=== PATIENT | male | born 1940 | race Hispanic/Latino ===

== ENCOUNTER 2021-09-20 16:22 | Inpatient (IN) | payer OTHER ==
--- OUTSIDE RECORDS SUMMARY | 2021-09-20 16:26 | XMS REPORT | Continuity of Care Document ---
:[address] [facility] t Address [address] [place] [address] Dr. Krishnamurthy [address] [place] [id number] Care Team Providers Name Role Phone Drake Juarez Attending Clinician Unavailable Ajibade_O_AH Attending Clinician Unavailable Ige-Odunuga_J_AH Attending Clinician Unavailable OTHMAN Attending Clinician Unavailable Ajibade_O_AH Admitting Clinician Unavailable Ige-Odunuga_J_AH Admitting Clinician Unavailable OTHMAN Admitting Clinician Unavailable Payers Payer Name Policy Type Policy Number Effective Date Expiration Date [facility] [place] [facility] [id number] [facility] (MEDICARE REPLACEMENT/ADVANT AGE - HMO) Problems This patient has no known problems. Allergies, Adverse Reactions, Alerts This patient has no known allergies or adverse reactions. Medications This patient has no known medications. Procedures This patient has no known procedures. Encounters Start End Encounter Admission Attending Care Care Encounter Source Date/Time Date/Time Type Type Clinicians Facility Department ID 2021-09-11 Outpatient Anabel Juarez [facility] [id number] 12:57:02 [id number] [facility] ent Clinics 2020-01-25 2020-01-25 Outpatient Ajibade_O_A VFP VFP [phone] [facility] 04:40:00 04:40:00 H [id number] Family Practic e 2020-01-25 2020-01-25 Outpatient Ajibade_O_A VFP VFP [phone] [facility] 04:40:00 04:40:00 H [id number] Family Practic e 2020-01-25 2020-01-25 Outpatient Ajibade_O_A VFP VFP [phone] [facility] 04:40:00 04:40:00 H [id number] Family Practic e 2020-01-25 2020-01-25 Outpatient Ajibade_O_A VFP VFP [phone] [facility] 04:40:00 04:40:00 H [id number] Family Practic e 2020-01-25 2020-01-25 Outpatient Ajibade_O_A VFP VFP [phone] [facility] 04:40:00 04:40:00 H [id number] Family Practic e 2019-07-19 2019-07-19 Outpatient Ige-Radha VFP P [address] [place] [address] 07:24:00 07:24:00 _J_ [id number] Family Practic e Results Test Description Test Time Test Comments Results Result Comments Source TISSUE EXAM 2017-02-19 Surgical Pathology 10:26:00 Report Case: [id number] Authorizing Provider: Allyssa Barker MD Collected: 02/18/2017 1018 Ordering Location: [facility] Endoscopy Received: 02/18/2017 1404 Services Pathologist: Abdirahman Schultz MD Specimen: Polyp, Colon - Right/Ascending RIGHT/ASCENDING COLON POLYP, BIOPSY- 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 DB/ew Sections reveal fragments of tubular adenoma with focal superficial high grade dysplasia. The glands show proliferation of adenomatous epithelium with nuclear stratification. The lamina propria has mildly increased acute chronic inflammation. Tatoo pigmentation is seen in areas. No dysplasia is seen at cauterized resection margin. Invasive malignancy is not seen. POCT-GLUCOSE METER 2017-02-19 08:09:00 Test Item Value Reference Range Interpretation Comme nts POC-GLUCOSE METER (BEAKER) (test 173 mg/dL 70-110 H TESTED AT [facility] [address] code = 1538) [facility] 7703 0 BASIC METABOLIC [id number] 05:45:00 Test Item Value Reference Range Interpretation Comments SODIUM (BEAKER) 136 meq/L 136-145 (test code = 381) POTASSIUM (BEAKER) 3.8 meq/L 3.5-5.1 (test code = 379) CHLORIDE (BEAKER) 104 meq/L 98-107 (test code = 382) CO2 (BEAKER) (test 25 meq/L 22-29 code = 355) BLOOD UREA NITROGEN 22 mg/dL 7-21 H (BEAKER) (test code = 354) CREATININE (BEAKER) 1.01 mg/dL 0.57-1.25 (test code = 358) GLUCOSE RANDOM 159 mg/dL 70-105 H (BEAKER) (test code = 652) CALCIUM (BEAKER) 8.7 mg/dL 8.4-10.2 (test code = 697) EGFR (BEAKER) (test 71 mL/min/1.73 ESTIMA JOCELYN GFR IS code = 1092) sq m NOT ACCURATE CREATININE CLEARANCE IN PREDICTING GLOMERULAR FILTRATION RATE . ESTIMATED GFR I S NOT APPLICABLE FOR DIALYSIS PATIEN TS. CBC (HEMOGRAM ONLY)2017-02-19 05:24:00 Test Item Value Reference Range Interpretation Comments WHITE BLOOD CELL COUNT (BEAKER) 13.0 K/ L 3.5-10.5 H (test code = 775) RED BLOOD CELL COUNT (BEAKER) 4.79 M/ L 4.63-6.08 (test code = 761) HEMOGLOBIN (BEAKER) (test code = 14.5 GM/DL 13.7-17.5 410) HEMATOCRIT (BEAKER) (test code = 42.8 % 40.1-51.0 411) MEAN CORPUSCULAR VOLUME (BEAKER) 89.4 fL 79.0-92.2 (test code = 753) MEAN CORPUSCULAR HEMOGLOBIN 30.3 pg 25.7-32.2 (BEAKER) (test code = 751) MEAN CORPUSCULAR HEMOGLOBIN CONC 33.9 GM/DL 32.3-36.5 (BEAKER) (test code = 752) RED CELL DISTRIBUTION WIDTH 12.3 % 11.6-14.4 (BEAKER) (test code = 412) PLATELET COUNT (BEAKER) (test 149 K/CU MM 150-450 L code = 756) MEAN PLATELET VOLUME (BEAKER) 11.7 fL 9.4-12.4 (test code = 754) NUCLEATED RED BLOOD CELLS 0 /100 WBC 0-0 ([facility]) (test code = 413) POCT-GLUCOSE [id number] 21:23:00 Test Item Value Reference Range Interpretation Comments POC-GLUCOSE METER 205 mg/dL 70-110 H TESTED AT [place] [address] ([facility]) (test code = [address] [place] 1538) [id number] POCT-GLUCOSE [id number] 16:17:00 Test Item Value Reference Range Interpretation Comments POC-GLUCOSE METER 209 mg/dL 70-110 H TESTED AT [place] [address] ([facility]) (test code = ED[address] [place] 1538) [id number] POCT-GLUCOSE [id number] 15:29:00 Test Item Value Reference Range Interpretation Comments POC-GLUCOSE METER 147 mg/dL 70-110 H TESTED AT [place] [address] ([facility]) (test code = [address] [place] 1538) [id number] POCT-GLUCOSE [id number] 10:51:00 Test Item Value Reference Range Interpretation Comments POC-GLUCOSE METER 137 mg/dL 70-110 H TESTED AT [place] [address] ([facility]) (test code = ED[address] [place] 1538) [id number] POCT-GLUCOSE [id number] 07:02:00 Test Item Value Reference Range Interpretation Comments POC-GLUCOSE METER 171 mg/dL 70-110 H TESTED AT [place] [address] ([facility]) (test code = [address] [place] 1538) [id number]
[2021-09-20] MEDS ORDERED: NA CHLORIDE 0.9% 500 ML ONE ×2 (17:53→19:17)
[2021-09-20 18:11] LABS: Absolute Lymphocytes (CBC) 1.5 K/uL (0.7-4.9); Hematocrit 50.3 % (39.6-49.0); Lymphocytes % 14.3 % (15.3-44.8); MPV 10.4 fL (7.6-11.3); RBC Red Blood Cell Count 5.47 M/uL (4.33-5.43)
[2021-09-20 18:13] LABS: Protime INR 0.9
--- NOTE | 2021-09-20 18:14 | RAD REPORT ---
EXAM DESCRIPTION: RAD - Chest Single View - 09/20/2021 5:58 pm CLINICAL HISTORY: Dizziness Chest pain. COMPARISON: CHEST PA AND LAT 2 VIEW dated 07/04/2012; CHEST PA AND LAT 2 VIEW dated 06/12/2011; CHEST P A AND LAT 2 VIEW dated 07/27/2003 FINDINGS: Portable technique limits examination quality. The lungs are grossly clear. The heart is normal in size. No displaced fractures. IMPRESSION: No acute intrathoracic process suspected.
--- NOTE | 2021-09-20 18:16 | RAD REPORT ---
EXAM DESCRIPTION: CT - Head Brain Wo Cont - 09/20/2021 6:09 pm CLINICAL HISTORY: Dizziness, non-specific Headache, drowsiness, dizziness COMPARISON: No comparisons TECHNIQUE: All CT scans are performed using dose optimization technique as appropriate and may inclu de automated exposure control or mA/KV adjustment according to patient size. FINDINGS: No intracranial hemorrhage, hydrocephalus or extra-axial fluid collection.Mild brain atrop hy.No areas of brain edema or evidence of midline shift. Chronic sinusitis left maxillary antrum. The paranasal sinuses and mastoids are otherwise clear. The calvarium is intact. IMPRESSION: No acute intracranial abnormality.
[2021-09-20 18:29] LABS: Albumin 3.5 g/dL (3.4-5.0); Bilirubin Direct 0.2 mg/dL (0-0.2); Bilirubin Total 0.7 mg/dL (0.2-1.0); Magnesium 2.9 mg/dL (1.8-2.4); Potassium 5.2 mmol/L (3.5-5.1); Protein, Total 8.3 g/dL (6.4-8.2); Troponin High Sensitivity 9.1 pg/mL (<58.9)
--- NOTE | 2021-09-20 18:58 | ER ---
Nurse's Notes [facility] Name: Neal Farrell Age: 81 yrs Sex: Male : 1940 Arrival Date: 09/20/2021 Time: 16:23 Bed 16 Private MD: Diagnosis: Dehydration;Hyperglycemia, unspecified Presentation: 09/20 17:01 Chief complaint: Patient's son or daughter states: "my dad has been feeling dizzy since vg1 yesterday but today I noticed that he lost his balance and caught himself against the wall and I helped him sit down" Pt states "when Im sitting down Im ok but when I stand up I feel dizzy" Stated room spins upon standing. Denies NV or headache. Coronavirus screen: Vaccine status: Patient reports receiving the 2nd dose of the covid vaccine. Client denies travel out of the [place] in the last 14 days. Ebola Screen: Patient denies exposure to infectious person. Patient denies travel to an Ebola-affected area in the 21 days before illness onset. Initial Sepsis Screen: Does the patient meet any 2 criteria? No. Patient's initial sepsis screen is negative. Does the patient have a suspected source of infection? No. Patient's initial sepsis screen is negative. Risk Assessment: Do you want to hurt yourself or someone else? Patient reports no desire to harm self or others. Onset of symptoms was September 19, 2021. 17:01 Method Of Arrival: Wheelchair vg1 17:01 Acuity: VIBHA 2 vg1 Triage Assessment: 17:06 General: Appears uncomfortable, Behavior is cooperative. Pain: Denies pain. vg1 Historical: - Allergies: 17:06 No Known Allergies; vg1 - Home Meds: 17:06 amlodipine oral [Active]; Hydrochlorothiazide Oral [Active]; pravastatin oral [Active]; vg1 Lisinopril Oral [Active]; Novolog Sub-Q [Active]; Tresiba FlexTouch U-200 200 unit/mL (3 mL) subcutaneous inpn [Active]; - PMHx: 17:06 Diabetes mellitus; Hypertensive disorder; Hypercholesterolemia; vg1 - Immunization history:: Client reports receiving the 2nd dose of the Covid vaccine. - Social history:: Smoking status: Patient denies any tobacco usage or history of. Screenin:12 Abuse screen: Denies threats or abuse. Denies injuries from another. Nutritional ph screening: No deficits noted. Tuberculosis screening: No symptoms or risk factors identified. Fall Risk No fall in past 12 months (0 pts). No secondary diagnosis (0 pts). IV access (20 points). Ambulatory Aid- None/Bed Rest/Nurse Assist (0 pts). Gait- Weak (10 pts.). Mental Status- Oriented to own ability (0 pts). Total Weber Fall Scale indicates Low Risk Score (25-44 pts). Fall prevention measures have been instituted. Side Rails Up X 2 Placed close to Nursing Station Frequent Obs/Assesments occuring Family Present and informed to notify staff if they need to leave bedside As available Patient and Family Educated on Fall Prevention Program and strategies. Assessment: 17:40 General: Appears in no apparent distress. comfortable, well groomed, Behavior is calm, ph cooperative, appropriate for age, Denies fever, chills. Pain: Denies pain. Neuro: Level of Consciousness is awake, alert, obeys commands, Oriented to person, place, time, situation, Reports dizziness. Cardiovascular: Reports fatigue, lightheadedness, Denies chest pain, nausea, shortness of breath, vomiting, Capillary refill < 3 seconds in bilateral fingers Patient's skin is warm and dry. Respiratory: Airway is patent Respiratory effort is even, unlabored. GI: No signs and/or symptoms were reported involving the gastrointestinal system. Patient currently denies diarrhea, nausea, vomiting, Parent/caregiver reports the patient having constipation. : No signs and/or symptoms were reported regarding the genitourinary system. Derm: Skin is intact, Skin is pink, warm \\T\\ dry. Musculoskeletal: Circulation, motion, and sensation intact. Range of motion: intact in all extremities. 19:26 Reassessment: Patient and/or family updated on plan of care and expected duration. Pain ph level reassessed. Patient is alert, oriented x 3, equal unlabored respirations, skin warm/dry/pink. Patient denies pain at this time. Vital Signs: 17:01 BP 79 / 45; Pulse 78; Resp 16; Temp 97.5; Pulse Ox 99% on R/A; Weight 86.18 kg; Height vg1 5 ft. 9 in. (175.26 cm); Pain 0/10; 17:40 BP 92 / 40; Pulse 74; Resp 18; Pulse Ox 96% on R/A; ph 18:18 BP 117 / 64; Pulse 70; Resp 18; Pulse Ox 99% on R/A; ph 19:00 BP 129 / 64; Pulse 82; Resp 22; Pulse Ox 98% on R/A; ph 20:30 BP 109 / 63; Pulse 81; Resp 22; Pulse Ox 96% on R/A; ph 17:01 Body Mass Index 28.06 (86.18 kg, 175.26 cm) vg1 ED Course: 16:23 Patient arrived in ED. ds1 17:04 Triage completed. vg1 17:06 Arm band placed on. vg1 17:11 Wendy Moss RN is Primary Nurse. ph 17:13 Patient has correct armband on for positive identification. Bed in low position. Call ph light in reach. Side rails up X 1. athletic monitor on. Pulse ox on. NIBP on. 17:27 Venkat Darby NP is PHCP. pm1 17:27 Naomi Estevez MD is Attending Physician. pm1 17:40 Missed attempt(s): 20 gauge in left antecubital area. Bleeding controlled, band aid ph applied, catheter tip intact. Missed attempt(s): 22 gauge in left forearm. 17:59 Inserted saline lock: 20 gauge in right antecubital area, using aseptic technique. mb7 Blood collected. 18:00 XRAY Chest (1 view) In Process Unspecified. EDMS 18:10 Head Brain Wo Cont In Process Unspecified. EDMS 18:57 Naomi Graham MD is Hospitalizing Provider. pm1 19:26 No provider procedures requiring assistance completed. Patient admitted, IV remains in ph place. 19:29 Primary Nurse role handed off by Wendy Moss RN mw2 20:54 Wendy Moss RN is Primary Nurse. ph Administered Medications: 18:18 Drug: NS 0.9% 500 ml Route: IV; Rate: bolus; Site: right antecubital; ph 19:24 Drug: Insulin Regular Human 10 units {Co-Signature: ll3 (Marla Oliver RN).} Route: ph IVP; Site: right antecubital; 19:25 Drug: NS 0.9% 500 ml Route: IV; Rate: bolus; Site: right antecubital; ph 20:40 Drug: NS 0.9% 1000 ml Route: IV; Rate: 100 ml/hr; Site: right antecubital; ph Outcome: 18:57 Decision to Hospitalize by Provider. pm1 21:44 Admitted to Med/surg accompanied by nurse, via stretcher, room 225, with chart, Report vc1 called to KITA Pugh 21:44 Condition: good 21:46 Patient left the ED. vc1 Signatures: Dispatcher [facility] Yadira Moffett ds1 Wendy Moss, RN RN ph Venkat Darby, CHEY INSIDE SALES REPRESENTATIVE pm1 Mayo Stockton mw2 Kareen Nieto RN RN vg1 Quiana Teresa mb7 Shelly St RN RN vc1 Marla Oliver RN ll3 Corrections: (The following items were deleted from the chart) 21:45 21:44 Admitted to Med/surg accompanied by nurse, via stretcher, with chart, Report vc1 called to KITA Pugh vc1
--- NOTE | 2021-09-20 18:58 | EDPHYS ---
Physician Documentation [facility] Name: Neal Farrell Age: 81 yrs Sex: Male : 1940 Arrival Date: 09/20/2021 Time: 16:23 Bed 16 Private MD: ED Physician Naomi Estevez HPI: 09/20 17:30 This 81 yrs old Male presents to ER via Wheelchair with complaints of pm1 Dizziness. 17:30 The patient presents with dizziness, sense of spinning. Onset: The symptoms/episode pm1 began/occurred yesterday. Context: occurred while the patient was changing position. Sitting to standing causes dizziness. just prior to the episode the patient experienced no apparent symptoms. Modifying factors: The symptoms are alleviated by lying down, or sitting down, the symptoms are aggravated by changing position. Associated signs and symptoms: Pertinent positives: generalized weakness, Pertinent negatives: chest pain, palpitations, shortness of breath. Severity of symptoms: in the emergency department the symptoms are worse Pain is currently a 0 / 10. Patient's baseline: Neuro: alert and fully oriented, Motor: no deficits, Speech: normal. The patient has not recently seen a physician, has an appointment scheduled, Dr. Juarez . Historical: - Allergies: 17:06 No Known Allergies; vg1 - Home Meds: 17:06 amlodipine oral [Active]; Hydrochlorothiazide Oral [Active]; pravastatin oral [Active]; vg1 Lisinopril Oral [Active]; Novolog Sub-Q [Active]; Tresiba FlexTouch U-200 200 unit/mL (3 mL) subcutaneous inpn [Active]; - PMHx: 17:06 Diabetes mellitus; Hypertensive disorder; Hypercholesterolemia; vg1 - Immunization history:: Client reports receiving the 2nd dose of the Covid vaccine. - Social history:: Smoking status: Patient denies any tobacco usage or history of. ROS: 17:30 Constitutional: Negative for fever, chills, and weight loss, Cardiovascular: Negative pm1 for chest pain, palpitations, and edema, Respiratory: Negative for shortness of breath, cough, wheezing, and pleuritic chest pain, Abdomen/GI: Negative for abdominal pain, nausea, vomiting, diarrhea, and constipation, Back: Negative for injury and pain, MS/Extremity: Negative for injury and deformity, Skin: Negative for injury, rash, and discoloration. 17:30 Neuro: Positive for dizziness. 17:30 All other systems are negative. Exam: 17:30 Constitutional: This is a well developed, well nourished patient who is awake, alert, pm1 and in no acute distress. Head/Face: Normocephalic, atraumatic. 17:30 Back: No spinal tenderness. No costovertebral tenderness. Full range of motion. Skin: Warm, dry with normal turgor. Normal color with no rashes, no lesions, and no evidence of cellulitis. MS/ Extremity: Pulses equal, no cyanosis. Neurovascular intact. Full, normal range of motion. 17:30 Chest/axilla: Exam negative for acute changes, Inspection: normal, Palpation: is normal. 17:30 Cardiovascular: Exam negative for acute changes, Rate: normal, Rhythm: regular, Pulses: no pulse deficits are appreciated, Heart sounds: normal, normal S1and S2. 17:30 Respiratory: Exam negative for acute changes, respiratory distress, shortness of breath, Breath sounds: are clear throughout. 17:30 Neuro: Exam negative for acute changes, Orientation: is normal, Mentation: is normal, Motor: is normal, moves all fours. Vital Signs: 17:01 BP 79 / 45; Pulse 78; Resp 16; Temp 97.5; Pulse Ox 99% on R/A; Weight 86.18 kg; Height vg1 5 ft. 9 in. (175.26 cm); Pain 0/10; 17:40 BP 92 / 40; Pulse 74; Resp 18; Pulse Ox 96% on R/A; ph 18:18 BP 117 / 64; Pulse 70; Resp 18; Pulse Ox 99% on R/A; ph 19:00 BP 129 / 64; Pulse 82; Resp 22; Pulse Ox 98% on R/A; ph 20:30 BP 109 / 63; Pulse 81; Resp 22; Pulse Ox 96% on R/A; ph 17:01 Body Mass Index 28.06 (86.18 kg, 175.26 cm) vg1 MDM: 17:31 Patient medically screened. pm1 18:56 Data reviewed: vital signs. Data interpreted: Pulse oximetry: on room air is 99 %. pm1 Interpretation:. Counseling: I had a detailed discussion with the patient and/or guardian regarding: the historical points, exam findings, and any diagnostic results supporting the discharge/admit diagnosis, lab results, radiology results, the need for further work-up and treatment in the hospital, to return to the emergency department if symptoms worsen or persist or if there are any questions or concerns that arise at home. 18:58 ED course: Discussed presentation and labs with Dr. Canada. Impression is dehydration pm1 and hyperglycemia, not DKA. Treatment is IV fluids and insulin IV. No insulin drip. Calculated anion gap 11. CO2 wnls. Corrected Na is 134 . 09/20 17:30 Order name: Basic Metabolic Panel; Complete Time: 18:47 pm1 09/20 17:30 Order name: CBC with Diff; Complete Time: 18:21 pm1 09/20 17:30 Order name: LFT's; Complete Time: 18:47 pm1 09/20 17:30 Order name: Magnesium; Complete Time: 18:47 pm1 09/20 17:30 Order name: NT PRO-BNP; Complete Time: 18:47 pm1 09/20 17:30 Order name: PT-INR; Complete Time: 18:21 pm09/20 17:30 Order name: Troponin HS; Complete Time: 18:47 pm1 09/20 17:30 Order name: XRAY Chest (1 view); Complete Time: 18:21 pm1 09/20 17:30 Order name: CT Head Brain wo Cont pm1 09/20 17:42 Order name: Head Brain Wo Cont; Complete Time: 18:21 EDMS 09/20 19:09 Order name: COVID-19 SARS RT PCR (Document "Date of Onset" if Symptomatic); Complete ph Time: 20:10 09/20 21:05 Order name: Glucose, Ancillary Testing; Complete Time: 08:11 EDMS 09/20 17:30 Order name: EKG; Complete Time: 17:37 pm09/20 17:30 Order name: Cardiac monitoring; Complete Time: 17:40 pm09/20 17:30 Order name: EKG - Nurse/Tech; Complete Time: 17:39 pm09/20 17:30 Order name: IV Saline Lock; Complete Time: 18:18 pm09/20 17:30 Order name: Labs collected and sent; Complete Time: 18:18 pm09/20 17:30 Order name: O2 Per Protocol; Complete Time: 17:40 pm1 09/20 17:30 Order name: O2 Sat Monitoring; Complete Time: 17:39 pm1 Administered Medications: 18:18 Drug: NS 0.9% 500 ml Route: IV; Rate: bolus; Site: right antecubital; ph 19:24 Drug: Insulin Regular Human 10 units {Co-Signature: ll3 (Marla Oliver RN).} Route: ph IVP; Site: right antecubital; 19:25 Drug: NS 0.9% 500 ml Route: IV; Rate: bolus; Site: right antecubital; ph 20:40 Drug: NS 0.9% 1000 ml Route: IV; Rate: 100 ml/hr; Site: right antecubital; ph Disposition Summary: 09/20/21 18:57 Hospitalization Ordered Hospitalization Status: Inpatient Admission pm1 Provider: Naomi Graham pm1 Location: Telemetry/MedSurg (Inpatient) pm1 Condition: Stable pm1 Problem: new pm1 Symptoms: have improved pm1 Bed/Room Type: Standard pm1 Room Assignment: 225(09/20/21 20:23) Diagnosis - Dehydration pm1 - Hyperglycemia, unspecified pm1 Forms: - Medication Reconciliation Form pm1 - SBAR form pm1 Addendum: 09/25/2021 18:07 Co-signature as Attending Physician, Naomi sarkar a2 Signatures: Dispatcher [employer] EDMS Lou Carter RN RN mw Hall, Patricia, RN RN Venkat Darby, CHEY EARLY HEAD START DIRECTOR pm1 Naomi Estevez MD MD tn2 Kareen Nieto RN RN 1 Marla Oliver RN ll3 Corrections: (The following items were deleted from the chart) 09/20 19:57 18:57 Hypo-osmolality and hyponatremia pm1 pm1 20: 18:57 pm1 mw
[2021-09-20] MEDS ORDERED: INSULIN -REGULAR HUMAN 50 UNIT/0.5 ML ML ONE (19:17)
[2021-09-20] MEDS ORDERED: NA CHLORIDE 0.9% 1,000 ML ONE (19:17)
[2021-09-20] MEDS ORDERED: ONDANSETRON 4 MG/2 ML VIAL IV PRN (21:36)
[2021-09-20] MEDS ORDERED: GLUCAGON 1 MG/VIAL IM PRN (21:36)
[2021-09-20] MEDS ORDERED: INSULIN -REGULAR HUMAN 50 UNIT/0.5 ML ML SQ SCH (21:36)
[2021-09-20] MEDS ORDERED: NA CHLORIDE 0.9% 1,000 ML IV SCH (21:36)
[2021-09-20] MEDS ORDERED: INSULIN -REGULAR HUMAN 50 UNIT/0.5 ML ML IV ONE (21:36)
[2021-09-20] MEDS ORDERED: ACETAMINOPHEN 500 MG TAB PO PRN (21:36)
[2021-09-20] MEDS ORDERED: D50W 25 GM/50 ML SYRINGE IV PRN (21:36)
--- NOTE | 2021-09-20 22:20 | P.HP ---
Certification for Inpatient Patient admitted to: Inpatient With expected LOS: >2 Midnights Patient will require the following post-hospital care: None Practitioner: I am a practitioner with admitting privileges, knowledge of patient current condition, hospital course, and medical plan of care. Services: Services provided to patient in accordance with Admission requirements found in Title 42 Section 412.3 of the Code of Federal Regulations <Gricelda Adkins - Last Filed: 09/20/21 22:27> Patient History Date of Service: 09/20/21 Reason for admission: Dehydration, Hyperglycemia, Hyponatremia History of Present Illness: Patient is an 81-year-old male with past medical history of type 2 diabetes insulin dependent and hypertension who presented to the ED with complaints of weakness. Patient's son states that he almost fell down from the dizziness today. Patient reports that he has been eating less the past couple of days but drinking a lot of water. Labs significant for 128 of 116, potassium 5.2, chloride 81, glucose 863, magnesium 2.9, creatinine 2.34 (baseline unknown), GFR 27, corrected sodium 134. Patient was given 10 units of insulin and 1 L bolus. Subsequent glucose readings still greater than 500. Electrolyte balance is likely secondary to dehydration and hyperglycemia. Upon my assessment, patient is oriented x3 and states he is feeling mild improvement. ED provider wishes to admit patient for further evaluation and treatment. Home medications list reviewed: Yes - Past Medical/Surgical History Diabetic: Yes -: Hypertension -: Type 2 Diabetes- Insulin Dependent -: Hyperlipidemia Past Surgical History: Patient denies surgical history Psychosocial/ Personal History: Patient lives at home with his son. - Family History Father -: Diabetes - Social History Smoking Status: Never smoker Alcohol use: Yes CD- Drugs: No Caffeine use: Yes Place of Residence: Home <JedGricelda - Last Filed: 09/20/21 22:27> Date of Service: 09/20/21 - Family History Father -: Diabetes Mother -: Diabetes Sister -: Diabetes <Naomi Graham - Last Filed: 09/21/21 21:42> Allergies No Known Allergies Allergy (Verified 09/21/21 02:29) Review of Systems 10-point ROS is otherwise unremarkable General: Other (dizziness) <Gricelda Adkins - Last Filed: 09/20/21 22:27> Physical Examination - Vital Signs Temperature: 97.5 F Blood Pressure: 109/63 Pulse: 81 Respirations: 22 - Physical Exam General: Alert, In no apparent distress, Oriented x3 HEENT: Atraumatic, PERRLA, EOMI, Sclerae nonicteric Neck: Supple, 2+ carotid pulse no bruit, No LAD, Without JVD or thyroid abnormality Respiratory: Clear to auscultation bilaterally, Normal air movement Cardiovascular: Regular rate/rhythm, Normal S1 S2 Gastrointestinal: Normal bowel sounds, No tenderness Musculoskeletal: No tenderness Integumentary: No rashes Neurological: Normal speech, Normal strength at 5/5 x4 extr, Normal tone, Normal affect - Studies Laboratory Data (last 24 hrs) 09/20/21 17:52: PT 9.9, INR 0.90 09/20/21 17:52: WBC 10.6, Hgb 16.9, Hct 50.3 H, Plt Count 180 09/20/21 17:52: Sodium 116 L*, Potassium 5.2 H, BUN 49 H, Creatinine 2.34 H, Glucose 863 H*, Magnesium 2.9 H, Total Bilirubin 0.7, AST 8 L, ALT 16, Alkaline Phosphatase 131 H <Roxy Adkinsia - Last Filed: 09/20/21 22:27> Assessment and Plan - Problems (Diagnosis) (1) Dehydration Current Visit: Yes Status: Acute (2) Acute hyponatremia Current Visit: Yes Status: Acute (3) Type 2 diabetes mellitus Current Visit: Yes Status: Chronic Qualifiers: Diabetes mellitus detention insulin use: with detention use Diabetes mellitus complication status: with hyperglycemia Qualified Code(s): E11.65 - Type 2 diabetes mellitus with hyperglycemia; Z79.4 - 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 Corrected sodium 134. Anion gap calculated by lab 16.2 but I calculated 11. DKA unlikely -10 units of insulin given the in the ED. Blood sugar remained greater than 500. We will continue IV insulin as needed -Recheck BMP in 4 hours. Electrolyte abnormalities likely secondary to dehydration/hypovolemia and hyperglycemia -Pending serum osmolality, urine osmolality, urine creatinine and sodium, uric acid, and nephrology consult -NS 0.9% at 100 cc an hour -Patient slightly hypotensive in the ED at 79 systolic. Has improved. Will monitor on telemetry -Creatinine elevated at 2.34. Unsure of patient's baseline. We will continue IV fluids and hold any nephrotoxic agents -Heparin for DVT prophylax Patient's son, Donal, can be reached at [phone] Discharge Plan: Home Plan to discharge in: 48 Hours - Advance Directives Does patient have a Living Will: No Does patient have a Durable POA for Healthcare: No - Code Status/Comfort Care Code Status Assessed: Yes (Full) Critical Care: No Time Spent Managing Pts Care (In Minutes): 70 <Gricelda Adkins - Last Filed: 09/20/21 22:27> Date of Service: 09/20/21 Subjective: HPI as mentioned above Physical Examination: Vitals: Afebrile vital signs are stable Physical exam: Cardiovascular: Within normal limits. Lungs: Within normal limits Abdomen: Within normal limits Neuro: Awake, alert, oriented to person place and time Assessment: 1. Hyponatremia and hyperglycemia Plan: 1. Continue with current plan of care as mentioned above <Naomi Graham - Last Filed: 09/21/21 21:42>
[2021-09-20 23:34] LABS: Potassium 4.2 mmol/L (3.5-5.1)
[2021-09-21] MEDS ORDERED: D50W 25 GM/50 ML SYRINGE IV PRN (00:35)
[2021-09-21] MEDS ORDERED: INSULIN -REGULAR HUMAN 50 UNIT/0.5 ML ML IV ONE (00:35)
[2021-09-21] MEDS ORDERED: GLUCAGON 1 MG/VIAL IM PRN (00:35)
[2021-09-21] MEDS: HEPARIN 5000 UNIT/ML 1 ML VIAL SQ SCH ×4 (02:09→23:59)
[2021-09-21 02:17] LABS: Arterial Blood Carboxyhemoglob 0.9 % (0-1.5); Blood Gas Oxyhemoglobin 93.3 % (94-97); Blood O2 Saturation 95.2 % (92-98.5)
[2021-09-21 02:51] VITALS: BMI 24.3
[2021-09-21 03:35] LABS: Absolute Lymphocytes (CBC) 2.7 K/uL (0.7-4.9); Hematocrit 42.2 % (39.6-49.0); Lymphocytes % 25.9 % (15.3-44.8); MPV 9.7 fL (7.6-11.3); RBC Red Blood Cell Count 4.77 M/uL (4.33-5.43)
[2021-09-21] MEDS: INSULIN -REGULAR HUMAN 50 UNIT/0.5 ML ML SQ SCH ×5 (03:39→20:49)
[2021-09-21 04:03] LABS: Albumin 2.8 g/dL (3.4-5.0); Bilirubin Total 0.5 mg/dL (0.2-1.0); Magnesium 2.6 mg/dL (1.8-2.4); Phosphorus 3.6 mg/dL (2.5-4.9); Potassium 3.4 mmol/L (3.5-5.1); Protein, Total 6.5 g/dL (6.4-8.2); Thyroid Stimulating Hormone 0.581 uIU/mL (0.360-3.740)
[2021-09-21] MEDS ORDERED: INSULIN -REGULAR HUMAN 50 UNIT/0.5 ML ML SQ SCH (06:00)
[2021-09-21 06:22] LABS: Urine Appearance Clear (Clear); Urine Bilirubin Negative (Negative); Urine Blood Trace-intact (Negative); Urine Color Yellow (Yellow); Urine Glucose 2+ (Negative); Urine Protein Negative (Negative); Urine Specific Gravity 1.015 (1.005-1.030); Urine Urobilinogen 0.2 mg/dL (0.2-1.0); Urine pH 5.5 (5.0-7.0)
[2021-09-21 06:23] LABS: Urine Microscopic Reflex ORDER UMIC
[2021-09-21 06:28] LABS: Urine Bacteria 20-50 /HPF (NONE SEEN); Urine Mucus 1+ /HPF (NONE SEEN); Urine RBC <5 /HPF (NONE SEEN); Urine Yeast FEW (NONE SEEN)
[2021-09-21] MEDS: NA CHLORIDE 0.9% 1,000 ML IV SCH ×3 (06:52→13:27)
[2021-09-21] MEDS ORDERED: CEFTRIAXONE 1,000 MG in NA CHLORIDE 0.9% 50 ML IVPB ONE (14:00)
[2021-09-21] MEDS: PHENOL 1.4% ORAL SPRAY 180ML MM PRN (14:01)
[2021-09-21] MEDS: CHLORASEPTIC LOZENGES PO PRN (14:01)
--- NOTE | 2021-09-21 21:47 | P.PN ---
Subjective Date of Service: 09/21/21 Subjective: No new changes, No C/O voiced, Improving Review of Systems 10-point ROS is otherwise unremarkable Physical Examination - Vital Signs Temperature: 96.7 F Blood Pressure: 102/55 Pulse: 68 Respirations: 16 Pulse Ox (%): 98 - Physical Exam General: Alert, In no apparent distress, Oriented x3 Respiratory: Clear to auscultation bilaterally, Normal air movement Cardiovascular: Regular rate/rhythm, Normal S1 S2, No murmurs Gastrointestinal: Normal bowel sounds, Soft and benign, Non-distended, No tenderness, No rebound, No guarding Musculoskeletal: No clubbing, No swelling, No tenderness Neurological: Sensation intact, Cranial nerves 3-12 intact - Studies Medications List Reviewed: Yes Assessment & Plan - Problems (Diagnosis) (1) Hyperglycemia Current Visit: Yes Status: Acute (2) TONE (acute kidney injury) Current Visit: Yes Status: Acute (3) Acute hyponatremia Current Visit: Yes Status: Acute (4) Dehydration Current Visit: Yes Status: Acute (5) Type 2 diabetes mellitus Current Visit: Yes Status: Chronic Qualifiers: Diabetes mellitus starch crab insulin use: with prison use Diabetes mellitus complication status: with hyperglycemia Qualified Code(s): E11.65 - Type 2 diabetes mellitus with hyperglycemia; Z79.4 - USP (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 of insulin - Plan Plan: 1. Strict blood sugar control 2. Continue with IV fluids 3. Monitor sodium level 4. Out of bed and ambulate 5. Possible discharge in the morning 6. GI and DVT prophylaxis Discharge Plan: Home Plan to discharge in: Greater than 2 days - Advance Directives Does patient have a Living Will: No Does patient have a Durable POA for Healthcare: No - Code Status/Comfort Care Code Status Assessed: Yes Code Status: Full Code Critical Care: No Time Spent Managing PTS Care (In Minutes): 35
[2021-09-22 04:11] LABS: Absolute Lymphocytes (CBC) 2.3 K/uL (0.7-4.9); Hematocrit 39.6 % (39.6-49.0); Lymphocytes % 29.1 % (15.3-44.8)
[2021-09-22 04:33] LABS: Albumin 2.5 g/dL (3.4-5.0); Bilirubin Total 0.3 mg/dL (0.2-1.0); Magnesium 2.5 mg/dL (1.8-2.4); Phosphorus 3.3 mg/dL (2.5-4.9); Potassium 3.4 mmol/L (3.5-5.1); Protein, Total 5.9 g/dL (6.4-8.2)
[2021-09-22] MEDS: INSULIN -REGULAR HUMAN 50 UNIT/0.5 ML ML SQ SCH ×4 (08:12→22:39)
[2021-09-22] MEDS: PHENOL 1.4% ORAL SPRAY 180ML MM PRN ×2 (08:12→20:20)
[2021-09-22] MEDS: CHLORASEPTIC LOZENGES PO PRN ×2 (08:13→20:25)
[2021-09-22] MEDS: NA CHLORIDE 0.9% 1,000 ML IV SCH (08:14)
[2021-09-22] MEDS: HEPARIN 5000 UNIT/ML 1 ML VIAL SQ SCH ×2 (08:14→17:00)
[2021-09-22] MEDS: CEFTRIAXONE 1,000 MG in NA CHLORIDE 0.9% 50 ML IVPB SCH (08:14)
--- NOTE | 2021-09-22 16:13 | P.PN ---
Subjective Date of Service: 09/22/21 Chief Complaint: Dehydration, Hyperglycemia, Hyponatremia Subjective: No new changes (Slowly improving Family still worried about persistent hypoglycemia Patient more conversant although slow) Physical Examination - Vital Signs Temperature: 97.0 F Blood Pressure: 121/60 Pulse: 75 Respirations: 16 Pulse Ox (%): 96 - Studies Medications List Reviewed: Yes Assessment And Plan Physician Review: Patient Assessed, Agree with Above Assessment and Plan Physician Review Additional Text: - Physical Exam General: Alert, In no apparent distress, Oriented x3 Respiratory: Clear to auscultation bilaterally, Normal air movement Cardiovascular: Regular rate/rhythm, Normal S1 S2, No murmurs Gastrointestinal: Normal bowel sounds, Soft and benign, Non-distended, No tenderness, No rebound, No guarding Musculoskeletal: No clubbing, No swelling, No tenderness Neurological: Sensation intact, Cranial nerves 3-12 intact - Studies Medications List Reviewed: Yes Assessment & Plan - Problems (Diagnosis) (1) Hyperglycemia Current Visit: Yes Status: Acute (2) TONE (acute kidney injury) Current Visit: Yes Status: Acute (3) Acute hyponatremia Current Visit: Yes Status: Acute (4) Dehydration Current Visit: Yes Status: Acute (5) Type 2 diabetes mellitus Current Visit: Yes Status: Chronic Qualifiers: Diabetes mellitus retirement insulin use: with retirement use Diabetes m edilmaitus complication status: with hyperglycemia Qualified Code(s): E11.65 - Type 2 diabetes mellitus with hyperglycemia; Z79.4 - 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 (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 of insulin - Plan Plan: See persistent hyperglycemiastart long-acting insulin Patient previously on Tresiba, switched to Levemir 30 units twice daily and monitor Patient to bring home dose of Tresiba and they can adjust Continuously and sliding scale Add low-dose metformin since Marked elevated HbA1c and minimize risk of hypoglycemia Serum sodium improving Replace potassium today Creatinine improving to 1.1 DC IVF normal saline since mild fluid overload, Blood pressure improved, continue to hold his CTZ/lisinopril/Norvasc Restart statin Start PT and OT Option of SNF versus home with PT discussed with family do prefer home with PT Case management to arrange possible discharge in a.m. 6. GI and DVT prophylaxis Discharge Plan: Home Plan to discharge in: Greater than 2 days
[2021-09-22] MEDS ORDERED: POTASSIUM 25 MEQ EFFERV TAB PO ONE (17:00)
[2021-09-22] MEDS: INSULIN GLARGINE 100 UNIT/ML SQ SCH (17:15)
[2021-09-22] MEDS: METFORMIN HCL 500 MG TAB PO SCH (17:15)
[2021-09-22] MEDS ORDERED: ATORVASTATIN 10 MG TAB PO SCH (21:00)
[2021-09-23] MEDS: HEPARIN 5000 UNIT/ML 1 ML VIAL SQ SCH ×2 (00:14→08:29)
[2021-09-23 04:11] LABS: Absolute Lymphocytes (CBC) 2.1 K/uL (0.7-4.9); Hematocrit 40.3 % (39.6-49.0); Lymphocytes % 24.3 % (15.3-44.8); MPV 9.8 fL (7.6-11.3); RBC Red Blood Cell Count 4.59 M/uL (4.33-5.43)
[2021-09-23 04:38] LABS: Albumin 2.6 g/dL (3.4-5.0); Bilirubin Total 0.3 mg/dL (0.2-1.0); Magnesium 2.4 mg/dL (1.8-2.4); Phosphorus 2.5 mg/dL (2.5-4.9); Potassium 3.4 mmol/L (3.5-5.1); Protein, Total 6.4 g/dL (6.4-8.2)
[2021-09-23] MEDS: INSULIN GLARGINE 100 UNIT/ML SQ SCH (04:50)
[2021-09-23] MEDS: INSULIN -REGULAR HUMAN 50 UNIT/0.5 ML ML SQ SCH ×2 (07:30→12:26)
[2021-09-23] MEDS: CEFTRIAXONE 1,000 MG in NA CHLORIDE 0.9% 50 ML IVPB SCH (08:29)
[2021-09-23] MEDS: METFORMIN HCL 500 MG TAB PO SCH (08:29)
[2021-09-23] MEDS: CHLORASEPTIC LOZENGES PO PRN (08:37)
[2021-09-23] MEDS ORDERED: HOME MED 1 EA UNK (Pravastatin Sodium [Pravastatin Sodium] 20 MG Tablet) PO SCH (09:00)
[2021-09-23] MEDS ORDERED: POTASSIUM 25 MEQ EFFERV TAB PO ONE (10:45)
--- NOTE | 2021-09-23 10:48 | P.DS ---
Admission Date: 09/20/21 Discharge Date: 09/23/21 Disposition: DC HOME/HOME HEALTH CARE Discharge Condition: FAIR Reason for Admission: Dehydration, Hyperglycemia, Hyponatremia Brief History of Present Illness: History of Present Illness: Patient is an 81-year-old male with past medical history of type 2 diabetes insulin dependent and hypertension who presented to the ED with complaints of weakness. Patient's son states that he almost fell down from the dizziness today. Patient reports that he has been eating less the past couple of days but drinking a lot of water. Labs significant for 128 of 116, potassium 5.2, chloride 81, glucose 863, magnesium 2.9, creatinine 2.34 (baseline unknown), GFR 27, corrected sodium 134. Patient was given 10 units of insulin and 1 L bolus. Subsequent glucose readings still greater than 500. Electrolyte balance is likely secondary to dehydration and hyperglycemia. Upon my assessment, patient is oriented x3 and states he is feeling mild improvement. ED provider wishes to admit patient for further evaluation and treatment. Home medications list reviewed: Yes - Past Medical/Surgical History Diabetic: Yes -: Hypertension -: Type 2 Diabetes- Insulin Dependent -: Hyperlipidemia Past Surgical History: Patient denies surgical history Psychosocial/ Personal History: Patient lives at home with his son. Hospital Course: Patient was admitted for weakness noted with marked hyperglycemia as well as UTI symptoms. He was also noted with acute kidney injury, hyponatremia as well as hypotension. His home blood pressure medications were held. His blood pressure subsequently improved. His serum sodium corrected. He is HCTZ was discontinued. He was restarted on lisinopril as well as reduced dose of amlodipine. Urine culture was culture negative jud. Patient was started on empirical antibiotics with Rocephin as well as adjustment of his home insulin dosage for better control of glucose level. Of note his hemoglobin A1c was markedly elevated at 14. Patient symptoms significantly improved. He is conversant now. He was evaluated by physical therapy and management for discharge home with home PT has been done. Patient Tresiba dose was adjusted to 40 units twice daily and added metformin. Vital Signs/Physical Exam: Temp Pulse Resp BP Pulse Ox 96.9 F 76 18 114/57 L 94 09/23/21 08:00 09/23/21 08:00 09/23/21 08:00 09/23/21 08:00 09/23/21 08:00 General: Alert, In no apparent distress, Oriented x3 HEENT: Atraumatic, Normocephalic, PERRLA Neck: Supple, 2+ carotid pulse no bruit, JVD not distended Respiratory: Clear to auscultation bilaterally, Normal air movement Cardiovascular: No edema, Normal pulses, Regular rate/rhythm, Normal S1 S2 Gastrointestinal: Normal bowel sounds, Soft and benign, Non-distended Musculoskeletal: No clubbing, No swelling Neurological: Normal speech, Cranial nerves 3-12 intact, Normal reflexes 2+ Laboratory Data at Discharge: WBC 8.7 K/uL (4.3-10.9) 09/23/21 03:45 Hgb 14.0 g/dL (13.6-17.9) 09/23/21 03:45 Hct 40.3 % (39.6-49.0) 09/23/21 03:45 Plt Count 143 K/uL (152-406) L 09/23/21 03:45 PT 9.9 SECONDS (9.5-12.5) 09/20/21 17:52 INR 0.90 09/20/21 17:52 Sodium 133 mmol/L (136-145) L 09/23/21 03:45 Potassium 3.4 mmol/L (3.5-5.1) L 09/23/21 03:45 BUN 23 mg/dL (7-18) H 09/23/21 03:45 Creatinine 0.97 mg/dL (0.55-1.3) 09/23/21 03:45 Glucose 107 mg/dL (74-106) H 09/23/21 03:45 Uric Acid 7.6 mg/dL (3.5-7.2) H 09/20/21 22:02 Phosphorus 2.5 mg/dL (2.5-4.9) 09/23/21 03:45 Magnesium 2.4 mg/dL (1.8-2.4) 09/23/21 03:45 Total Bilirubin 0.3 mg/dL (0.2-1.0) 09/23/21 03:45 AST 11 U/L (15-37) L 09/23/21 03:45 ALT 13 U/L (12-78) 09/23/21 03:45 Alkaline Phosphatase 87 U/L (45-117) 09/23/21 03:45 Triglycerides 236 mg/dL (<150) H 09/21/21 03:06 Cholesterol 129 mg/dL (<200) 09/21/21 03:06 HDL Cholesterol 37 mg/dL (40-60) L 09/21/21 03:06 Cholesterol/HDL Ratio 3.49 09/21/21 03:06 Home Medications: Insulin Aspart [Novolog Flexpen] 2 units SQ BID 09/21/21 Lisinopril [Zestril] 30 mg PO DAILY 09/21/21 Pravastatin Sodium 20 mg PO DAILY 09/21/21 Amlodipine [Norvasc*] 5 mg PO DAILY #15 tab 09/23/21 Insulin Degludec [Tresiba Flextouch U-200] 35 unit SQ BID #1 set 09/23/21 Metformin HCl [Glucophage*] 500 mg PO BIDWM #60 tab 09/23/21 New Medications: Metformin HCl [Glucophage*] 500 mg PO BIDWM #60 tab Amlodipine [Norvasc*] 5 mg PO DAILY #15 tab Insulin Degludec [Tresiba Flextouch U-200] 35 unit SQ BID #1 set Physician Discharge Instructions: Hold lisinopril and amlodipine for now until next 1 week Diet: ADA Activity: Ad arianna Followup: Shelby Jorgensen MD [Primary Care Provider] - Time spent managing pt's care (in minutes): 35
[2021-09-23] MEDS ORDERED: levoFLOXacin 750 MG TAB PO SCH (13:00)
[2021-09-23 14:39] VITALS: BP 119/63; TEMP 96.9; O2SAT 94
== END 2021-09-23 14:03 | disposition home health service (06) | DRG 638 ==
LOC: ER 16:22 → ERHOLD 20:15 → 2ND 20:59
PROVIDERS: ADMIT Hospitalist; ATTEND Hospitalist
DX: E11.65 Type 2 diabetes mellitus with hyperglycemia (principal); E87.1 Hypo-osmolality and hyponatremia; N17.9 Acute kidney failure, unspecified; N15.9 Renal tubulo-interstitial disease, unspecified; E86.0 Dehydration; E78.5 Hyperlipidemia, unspecified; I95.9 Hypotension, unspecified; Z79.4 Long term (current) use of insulin; Z20.822 Contact with and (suspected) exposure to COVID-19
CPT/HCPCS: 36415; 70450; 71045; 80048; 80053; 80061; 80076; 81003; 81015; 82570; 82805; 82947; 83036; 83735; 83880; 83930; 83935; 84100; 84300; 84439; 84443; 84484; 84550; 85025; 85610; 87086; 87088; 93005; 96374; 97116; 97161; 97165; 99285; J1644; J1815; J7030; J7040; U0003